=== PATIENT | female | born 1960 | race Caucasian/White ===

== ENCOUNTER 2020-12-08 20:22 | Emergency (ER) | payer SELFPAY ==
[~2020-12-08] VITALS: Ht 160 cm; Wt 73.0 kg
[2020-12-08] MEDS ORDERED: KETOROLAC 30MG/ML VIAL IV ONE (21:15)
[2020-12-08] MEDS ORDERED: CLONIDINE 0.2MG TABLET PO ONE (23:45)
[2020-12-09 02:14] VITALS: BP 155/62
== END 2020-12-09 02:15 | disposition home or self-care (01) ==
LOC: ER 20:22
DX: I16.0 Hypertensive urgency (principal); R07.89 Other chest pain; E78.00 Pure hypercholesterolemia, unspecified; Z86.73 Personal history of transient ischemic attack (TIA), and cerebral infarction without residual deficits
CPT/HCPCS: 36415; 84484; 96374; 99283; J1885

== ENCOUNTER 2021-01-15 18:58 | Emergency (ER) | payer MEDICAID ==
[~2021-01-15] VITALS: Ht 162.6 cm; Wt 68.0 kg
[2021-01-15] MEDS ORDERED: ACETAMINOPHEN 325MG TABLET PO STA (19:42)
[2021-01-15 20:22] LABS: BASOPHILS % 1.1 % (0.0-2.0); CHLORIDE 109 mEq/L (98-107); HEMATOCRIT. 40.2 % (36.0-48.0); HEMOGLOBIN. 13.5 g/dL (12.0-16.0); LYMPHOCYTES % 37.9 % (20.0-50.0); MEAN CORPUSCULAR HEMOGLOBIN 29.4 pg (28.0-32.0); MEAN CORPUSCULAR VOLUME 87.3 fL (81.0-99.0); MEAN PLATELET VOLUME 9.1 fl (7.4-10.4); MONOCYTES % 6.6 % (2.0-8.0); NEUTROPHILS % 52.4 % (40.0-76.0); PLATELET 257 x1000/uL (130-400); RED BLOOD CELL COUNT 4.61 mill/uL (4.2-5.4); RED CELL DISTRIBUTION WIDTH 12.8 % (11.6-14.6)
[2021-01-15 21:44] VITALS: BP 160/78
== END 2021-01-15 21:59 | disposition home or self-care (01) ==
LOC: ER 18:58
DX: I10 Essential (primary) hypertension (principal); E78.00 Pure hypercholesterolemia, unspecified; Z86.73 Personal history of transient ischemic attack (TIA), and cerebral infarction without residual deficits
CPT/HCPCS: 36415; 71045; 80053; 83880; 84484; 85025; 93005; 99285

== ENCOUNTER 2021-05-18 21:53 | Emergency (ER) | payer SELFPAY ==
[~2021-05-18] VITALS: Ht 154.9 cm; Wt 64.0 kg
[2021-05-18 21:57] VITALS: BP 139/58
== END 2021-05-19 01:09 | disposition left against medical advice (07) ==
LOC: ER 21:53
DX: R51.9 Headache, unspecified (principal); I10 Essential (primary) hypertension; E78.00 Pure hypercholesterolemia, unspecified; Z86.73 Personal history of transient ischemic attack (TIA), and cerebral infarction without residual deficits
CPT/HCPCS: 99283

== ENCOUNTER 2023-06-07 18:16 | Inpatient (IN) | payer SELFPAY ==
[~2023-06-07] VITALS: Ht 162.6 cm; Wt 70.8 kg
[2023-06-07] MEDS: MORPHINE SULFATE 4 MG/ML INJ (FOR IV/IM USE) IV STA (19:05)
[2023-06-07] MEDS: ONDANSETRON HCL 4MG/2ML INJ IV STA (19:06)
[2023-06-07] MEDS: SODIUM CHLORIDE 0.9% 1,000 ML IV ONE (19:06)
[2023-06-07] MEDS: FAMOTIDINE 20MG/2ML VIAL IV STA (19:07)
[2023-06-07 19:30] LABS: BASOPHILS % 0.9 % (0.0-2.0); EOSINOPHILS % 1.7 % (0.0-5.0); HEMATOCRIT. 42.1 % (36.0-48.0); HEMOGLOBIN. 14.7 g/dL (12.0-16.0); LYMPHOCYTES % 32.6 % (20.0-50.0); MEAN CORPUSCULAR HEMOGLOBIN 30.5 pg (28.0-32.0); MEAN CORPUSCULAR HGB CONC 34.9 g/dL (31.0-37.0); MEAN CORPUSCULAR VOLUME 87.4 fL (81.0-99.0); MEAN PLATELET VOLUME 8.5 fl (7.4-10.4); MONOCYTES % 6.1 % (2.0-8.0); NEUTROPHILS % 58.7 % (40.0-76.0); PLATELET 308 x1000/uL (130-400); RED BLOOD CELL COUNT 4.82 mill/uL (4.2-5.4); RED CELL DISTRIBUTION WIDTH 12.7 % (11.6-14.6); WHITE BLOOD COUNT 7.7 x1000/uL (4.5-11.0)
[2023-06-07 19:46] LABS: ALANINE AMINOTRANSFERASE 49 IU/L (10-49); ALBUMIN 4.9 g/dL (3.2-4.8); ASPARTATE AMINOTRANSFERASE 41 IU/L (<34); BILIRUBIN TOTAL 0.5 mg/dL (0.1-1.0); CALCIUM 9.6 mg/dL (8.7-10.4); CARBON DIOXIDE 24 mEq/L (21-32); CHLORIDE 107 mEq/L (98-107); CREATININE 0.7 mg/dL (0.6-1.0); GLUCOSE 109 mg/dL (70-105); POTASSIUM 3.2 mEq/L (3.5-5.1); PROTEIN TOTAL 8.4 g/dL (6.0-8.3); SODIUM 141 mEq/L (136-145); TROPONIN I HIGH SENSITIVITY 19 ng/L (3.0-34); UREA NITROGEN BLOOD 11 mg/dL (9-23)
[2023-06-07] MEDS ORDERED: ONDANSETRON HCL 4MG/2ML INJ IV PRN (20:15)
[2023-06-07] MEDS: KCL 10MEQ/50ML PREMIX 50 ML IV ONE (21:27)
[2023-06-07] MEDS ORDERED: HYDROCODONE/ACETAMINOPHEN 5/325MG TABLET PO PRN (21:31)
[2023-06-07] MEDS: ENOXAPARIN 40MG/0.4ML SYR SUBCUT SCH (21:45)
[2023-06-07] MEDS: ASPIRIN 81MG TABLET PO ONE (21:46)
[2023-06-08 06:42] LABS: BASOPHILS % 1.1 % (0.0-2.0); EOSINOPHILS % 3.6 % (0.0-5.0); HEMATOCRIT. 37.3 % (36.0-48.0); HEMOGLOBIN. 12.9 g/dL (12.0-16.0); LYMPHOCYTES % 39.4 % (20.0-50.0); MEAN CORPUSCULAR HEMOGLOBIN 30.8 pg (28.0-32.0); MEAN CORPUSCULAR HGB CONC 34.6 g/dL (31.0-37.0); MEAN CORPUSCULAR VOLUME 88.9 fL (81.0-99.0); MEAN PLATELET VOLUME 8.1 fl (7.4-10.4); MONOCYTES % 6.4 % (2.0-8.0); NEUTROPHILS % 49.5 % (40.0-76.0); PLATELET 260 x1000/uL (130-400); RED BLOOD CELL COUNT 4.19 mill/uL (4.2-5.4); RED CELL DISTRIBUTION WIDTH 12.8 % (11.6-14.6); WHITE BLOOD COUNT 5.7 x1000/uL (4.5-11.0)
[2023-06-08 07:24] LABS: ALANINE AMINOTRANSFERASE 37 IU/L (10-49); ALBUMIN 4.1 g/dL (3.2-4.8); ASPARTATE AMINOTRANSFERASE 26 IU/L (<34); BILIRUBIN DIRECT 0.2 mg/dL (<=3.0); BILIRUBIN TOTAL 0.6 mg/dL (0.1-1.0); CALCIUM 8.6 mg/dL (8.7-10.4); CARBON DIOXIDE 25 mEq/L (21-32); CHLORIDE 109 mEq/L (98-107); CREATININE 0.6 mg/dL (0.6-1.0); GLUCOSE 89 mg/dL (70-105); PHOSPHORUS 2.8 mg/dL (2.5-4.9); POTASSIUM 3.4 mEq/L (3.5-5.1); PROTEIN TOTAL 6.9 g/dL (6.0-8.3); SODIUM 142 mEq/L (136-145); UREA NITROGEN BLOOD 10 mg/dL (9-23)
[2023-06-08] MEDS: POTASSIUM CHLORIDE 20MEQ TABLET SR PO NR (10:52)
[2023-06-08] MEDS: ASPIRIN 81MG EC TABLET PO SCH (10:52)
[2023-06-08 12:00] VITALS: BP 110/55; PULSE 58; RESP 20; TEMP 97.8
[2023-06-08] MEDS ORDERED: LEVO88CA4 (12:07)
[2023-06-08] MEDS ORDERED: LISI40TA13 MT (12:08)
[2023-06-08] MEDS ORDERED: METO-539 MT (12:09)
[2023-06-08] MEDS ORDERED: LIP40 MT (12:10)
[2023-06-08] MEDS ORDERED: NIFE-33 MT (12:11)
[2023-06-08] MEDS ORDERED: TRAZ-251 MT (12:12)
[2023-06-08] MEDS ORDERED: CLON0.1T PO (12:13)
[2023-06-08] MEDS ORDERED: ASPI-1079 PO (12:15)
[2023-06-08 12:16] VITALS: BP 110/55; PULSE 58; RESP 20; TEMP 97.8
[2023-06-08 14:22] LABS: CLARITY URINE CLEAR (CLEAR); COLOR URINE YELLOW (YELLOW); GLUCOSE URINE NEGATIVE (NEGATIVE); KETONES URINE NEGATIVE (NEGATIVE); LEUKOCYTE ESTERASE URINE 2+ (NEGATIVE); NITRITE URINE NEGATIVE (NEGATIVE); OCCULT BLOOD URINE NEGATIVE (NEGATIVE); PROTEIN URINE NEGATIVE (NEGATIVE); SPECIFIC GRAVITY URINE 1.005 (1.005-1.030)
[2023-06-08 14:32] LABS: *AMPHETAMINES SCREEN URINE NEGATIVE (NEGATIVE); *BARBITURATES SCREEN URINE NEGATIVE (NEGATIVE); *BENZODIAZEPINES SCREEN URINE NEGATIVE (NEGATIVE); *COCAINE SCREEN URINE NEGATIVE (NEGATIVE); CANNABINOID URINE SCREEN NEGATIVE (NEGATIVE); ECSTASY MDMA SCREEN URINE NEGATIVE (NEGATIVE); METHADONE URINE SCREEN Neg (NEGATIVE); OPIATES URINE SCREEN NEGATIVE (NEGATIVE); PHENCYCLIDINE URINE SCREEN NEGATIVE (NEGATIVE)
[2023-06-08 14:43] LABS: SQUAMOUS EPITHELIAL CELL URINE FEW /lpf (RARE/1+)
[2023-06-08 14:45] LABS: BACTERIA URINE TRACE; RBC URINE 0-2 /hpf (0-2)
[2023-06-08 16:00] VITALS: BP 155/54; PULSE 60; RESP 18; TEMP 98.2
[2023-06-08 20:00] VITALS: BP 142/59; PULSE 62; RESP 16; TEMP 97.5
[2023-06-08] MEDS: ACETAMINOPHEN 325MG TABLET PO PRN (20:04)
[2023-06-08 21:35] VITALS: BP 147/60; PULSE 60; RESP 18; TEMP 98.1
[2023-06-08] MEDS: ATORVASTATIN CALCIUM 40MG TABLET PO SCH (21:44)
[2023-06-09 00:21] VITALS: BP 156/72; PULSE 90; RESP 18; TEMP 98
[2023-06-09 04:00] VITALS: BP 125/59; PULSE 60; RESP 17; TEMP 96.9
[2023-06-09 07:01] LABS: BASOPHILS % 1.2 % (0.0-2.0); EOSINOPHILS % 4.6 % (0.0-5.0); HEMATOCRIT. 38.7 % (36.0-48.0); HEMOGLOBIN. 13.4 g/dL (12.0-16.0); LYMPHOCYTES % 43.9 % (20.0-50.0); MEAN CORPUSCULAR HEMOGLOBIN 30.8 pg (28.0-32.0); MEAN CORPUSCULAR HGB CONC 34.6 g/dL (31.0-37.0); MEAN CORPUSCULAR VOLUME 88.9 fL (81.0-99.0); MEAN PLATELET VOLUME 8.7 fl (7.4-10.4); MONOCYTES % 5.7 % (2.0-8.0); NEUTROPHILS % 44.6 % (40.0-76.0); PLATELET 269 x1000/uL (130-400); RED BLOOD CELL COUNT 4.35 mill/uL (4.2-5.4); WHITE BLOOD COUNT 5.7 x1000/uL (4.5-11.0)
[2023-06-09 07:14] LABS: CARBON DIOXIDE 25 mEq/L (21-32); CHLORIDE 110 mEq/L (98-107); CREATININE 0.7 mg/dL (0.6-1.0); GLUCOSE 88 mg/dL (70-105); POTASSIUM 3.9 mEq/L (3.5-5.1); SODIUM 142 mEq/L (136-145); THYROID STIMULATING HORMONE 2.03 uIU/mL (0.55-4.78); TROPONIN I HIGH SENSITIVITY 11 ng/L (3.0-34); UREA NITROGEN BLOOD 10 mg/dL (9-23)
[2023-06-09 08:00] VITALS: BP 127/63; PULSE 65; RESP 16; TEMP 97.8
[2023-06-09] MEDS ORDERED: LOSARTAN 25 MG TABLET PO SCH (10:45)
[2023-06-09] MEDS ORDERED: LOSA25TA26 PO (10:55)
[2023-06-09 11:22] VITALS: BP 127/63; PULSE 65; TEMP 97.8; O2SAT 98
== END 2023-06-09 12:30 | disposition home or self-care (01) | DRG 203 ==
LOC: ER 18:16 → 8WST 20:00
PROVIDERS: ADMIT Family Medicine Adult Medicine; ATTEND Family Medicine Adult Medicine
DX: R07.89 Other chest pain (principal); E03.9 Hypothyroidism, unspecified; E78.00 Pure hypercholesterolemia, unspecified; I10 Essential (primary) hypertension; R11.2 Nausea with vomiting, unspecified; K57.30 Diverticulosis of large intestine without perforation or abscess without bleeding; E87.6 Hypokalemia; R82.71 Bacteriuria; Z86.73 Personal history of transient ischemic attack (TIA), and cerebral infarction without residual deficits; Z82.49 Family history of ischemic heart disease and other diseases of the circulatory system
CPT/HCPCS: 36415; 71045; 74176; 76705; 80048; 80053; 80076; 80305; 81003; 83735; 83880; 84100; 84443; 84484; 85025; 93005; 93306; 99285; C1893; J1650; J2270; J2405; J3480; J3490; J7030

== ENCOUNTER 2023-06-10 18:49 | Inpatient (IN) | payer SELFPAY ==
[~2023-06-10] VITALS: Ht 157.5 cm; Wt 77.3 kg
[~2023-06-10 18:49] MED LIST: ASPI-1079 PO; LEVO88CA4; LIP40 MT; LOSA25TA26 PO; TRAZ-251 MT
[2023-06-10 20:13] LABS: BASOPHILS % 1.4 % (0.0-2.0); EOSINOPHILS % 2.5 % (0.0-5.0); HEMATOCRIT. 40.4 % (36.0-48.0); HEMOGLOBIN. 14.1 g/dL (12.0-16.0); LYMPHOCYTES % 36.5 % (20.0-50.0); MEAN CORPUSCULAR HGB CONC 34.9 g/dL (31.0-37.0); MEAN CORPUSCULAR VOLUME 88.8 fL (81.0-99.0); MEAN PLATELET VOLUME 8.4 fl (7.4-10.4); MONOCYTES % 6.2 % (2.0-8.0); NEUTROPHILS % 53.4 % (40.0-76.0); PLATELET 284 x1000/uL (130-400); RED BLOOD CELL COUNT 4.55 mill/uL (4.2-5.4); RED CELL DISTRIBUTION WIDTH 12.7 % (11.6-14.6); WHITE BLOOD COUNT 6.1 x1000/uL (4.5-11.0)
[2023-06-10 20:23] LABS: PROTHROMBIN TIME 10.8 sec (9.6-11.0)
[2023-06-10 20:34] LABS: ALANINE AMINOTRANSFERASE 52 IU/L (10-49); ALBUMIN 4.5 g/dL (3.2-4.8); ASPARTATE AMINOTRANSFERASE 42 IU/L (<34); BILIRUBIN TOTAL 0.4 mg/dL (0.1-1.0); CALCIUM 9.1 mg/dL (8.7-10.4); CARBON DIOXIDE 24 mEq/L (21-32); CHLORIDE 109 mEq/L (98-107); CREATININE 0.7 mg/dL (0.6-1.0); GLUCOSE 104 mg/dL (70-105); POTASSIUM 3.6 mEq/L (3.5-5.1); PROTEIN TOTAL 7.4 g/dL (6.0-8.3); SODIUM 141 mEq/L (136-145); TROPONIN I HIGH SENSITIVITY 9 ng/L (3.0-34); UREA NITROGEN BLOOD 9 mg/dL (9-23)
[2023-06-10 22:27] LABS: TROPONIN I HIGH SENSITIVITY 10 ng/L (3.0-34)
[2023-06-10 23:00] VITALS: BP 157/71; PULSE 62; RESP 17; TEMP 97.9
[2023-06-10] MEDS ORDERED: KETOROLAC 15MG/ML VIAL IV PRN (23:15)
[2023-06-10] MEDS ORDERED: IPRATROPIUM/ALBUTEROL 0.5-3(2.5)MG/3ML NEB HHN PRN (23:15)
[2023-06-10] MEDS ORDERED: DOCUSATE SODIUM 100MG CAPSULE PO PRN (23:15)
[2023-06-10] MEDS ORDERED: ACETAMINOPHEN 325MG TABLET PO PRN ×2 (23:15)
[2023-06-10] MEDS ORDERED: ONDANSETRON HCL 4MG/2ML INJ IV PRN (23:15)
[2023-06-10] MEDS: FAMOTIDINE 20MG TABLET PO SCH (23:54)
[2023-06-11] VITALS (7 sets, daily range): BP systolic 128–157; BP diastolic 58–67; PULSE 61–65; RESP 18–20; TEMP 97.9–98.2; O2SAT 97
[2023-06-11] MEDS: LEVOTHYROXINE SODIUM 88MCG TABLET PO SCH (06:56)
[2023-06-11 07:00] LABS: BASOPHILS % 1.7 % (0.0-2.0); HEMATOCRIT. 40.4 % (36.0-48.0); HEMOGLOBIN. 13.8 g/dL (12.0-16.0); LYMPHOCYTES % 40.6 % (20.0-50.0); MEAN CORPUSCULAR HEMOGLOBIN 30.1 pg (28.0-32.0); MEAN CORPUSCULAR HGB CONC 34.2 g/dL (31.0-37.0); MEAN CORPUSCULAR VOLUME 88.2 fL (81.0-99.0); MEAN PLATELET VOLUME 8.7 fl (7.4-10.4); MONOCYTES % 6.8 % (2.0-8.0); NEUTROPHILS % 46.9 % (40.0-76.0); PLATELET 251 x1000/uL (130-400); RED BLOOD CELL COUNT 4.58 mill/uL (4.2-5.4); RED CELL DISTRIBUTION WIDTH 12.9 % (11.6-14.6); WHITE BLOOD COUNT 5.3 x1000/uL (4.5-11.0)
[2023-06-11 07:32] LABS: ALANINE AMINOTRANSFERASE 52 IU/L (10-49); ALBUMIN 4.3 g/dL (3.2-4.8); ASPARTATE AMINOTRANSFERASE 38 IU/L (<34); BILIRUBIN TOTAL 0.5 mg/dL (0.1-1.0); CALCIUM 9.1 mg/dL (8.7-10.4); CARBON DIOXIDE 28 mEq/L (21-32); CHLORIDE 108 mEq/L (98-107); CHOLESTEROL 115 mg/dL (<200); CREATININE 0.7 mg/dL (0.6-1.0); GLUCOSE 91 mg/dL (70-105); HDL CHOLESTEROL 51 mg/dL (>65); LDL CHOLESTEROL 54 mg/dL (5-100); POTASSIUM 4.2 mEq/L (3.5-5.1); PROTEIN TOTAL 7.2 g/dL (6.0-8.3); SODIUM 143 mEq/L (136-145); T4 FREE 1.09 ng/dL (0.89-1.76); TRIGLYCERIDE 67 mg/dL (0-150); UREA NITROGEN BLOOD 10 mg/dL (9-23)
[2023-06-11 08:03] LABS: HEPATITIS B SURFACE ANTIGEN NEGATIVE (Negative); HEPATITIS C AB NON REACTIVE (Neg) (Negative)
[2023-06-11] MEDS: MULTIVITAMINS,THER W-MINERALS TABLET PO SCH (09:17)
[2023-06-11] MEDS: ASPIRIN 81MG TABLET PO SCH (09:17)
[2023-06-11] MEDS: DOCUSATE SODIUM 100MG CAPSULE PO SCH (09:17)
[2023-06-11] MEDS: LOSARTAN 25 MG TABLET PO SCH (09:17)
[2023-06-11] MEDS: ENOXAPARIN 40MG/0.4ML SYR SUBCUT SCH (09:18)
[2023-06-11] MEDS: CLONIDINE 0.1MG TABLET PO PRN (12:00)
[2023-06-11] MEDS: GUAIFENESIN 200MG/10ML SUGAR FREE UDC PO PRN (12:06)
[2023-06-11] MEDS: MAGNESIUM/ALUMINUM HYDROXIDE/SIMETHICONE 30ML UDC PO PRN (12:07)
[2023-06-11] MEDS ORDERED: OMEP20CA14 PO (14:51)
[2023-06-11] MEDS ORDERED: ATORVASTATIN CALCIUM 40MG TABLET PO SCH (21:00)
[2023-06-11] MEDS ORDERED: TRAZODONE HCL 50MG TABLET PO SCH (21:00)
== END 2023-06-11 17:05 | disposition home or self-care (01) | DRG 243 ==
LOC: ER 18:49 → 7WST 21:25 → EDBEDREQTM 21:29 → EDBEDREQ 21:29
PROVIDERS: ADMIT Hospitalist; ATTEND Hospitalist
DX: K21.9 Gastro-esophageal reflux disease without esophagitis (principal); E03.9 Hypothyroidism, unspecified; E78.00 Pure hypercholesterolemia, unspecified; I10 Essential (primary) hypertension; R07.89 Other chest pain; Z79.82 Long term (current) use of aspirin; Z79.899 Other long term (current) drug therapy; Z86.73 Personal history of transient ischemic attack (TIA), and cerebral infarction without residual deficits; Z82.49 Family history of ischemic heart disease and other diseases of the circulatory system
CPT/HCPCS: 36415; 71045; 80053; 80061; 84439; 84481; 84484; 85025; 86705; 87340; 93005; 99285; J1650

== ENCOUNTER 2023-06-13 21:28 | Emergency (ER) | payer SELFPAY ==
[~2023-06-13] VITALS: Ht 167.6 cm; Wt 71.0 kg
[~2023-06-13 21:28] MED LIST changes: +OMEP20CA14 PO
[2023-06-13 21:34] VITALS: BP 142/75; PULSE 66; RESP 20; TEMP 98.7; O2SAT 98
[2023-06-13] MEDS ORDERED: MORPHINE SULFATE 4 MG/ML INJ (FOR IV/IM USE) IV STA (21:45)
== END 2023-06-14 00:44 | disposition left against medical advice (07) ==
LOC: ER 21:28
DX: R07.9 Chest pain, unspecified (principal); Z53.21 Procedure and treatment not carried out due to patient leaving prior to being seen by health care provider
CPT/HCPCS: 93005; 99281

== ENCOUNTER 2023-06-17 18:32 | Emergency (ER) | payer SELFPAY ==
[~2023-06-17] VITALS: Ht 162.6 cm; Wt 69.0 kg
[2023-06-17 18:36] VITALS: TEMP 98.4; O2SAT 98
[2023-06-17 19:52] LABS: BASOPHILS % 1.4 % (0.0-2.0); EOSINOPHILS % 2.3 % (0.0-5.0); HEMATOCRIT. 42.7 % (36.0-48.0); HEMOGLOBIN. 14.6 g/dL (12.0-16.0); LYMPHOCYTES % 31.2 % (20.0-50.0); MEAN CORPUSCULAR HEMOGLOBIN 30.3 pg (28.0-32.0); MEAN CORPUSCULAR HGB CONC 34.2 g/dL (31.0-37.0); MEAN CORPUSCULAR VOLUME 88.6 fL (81.0-99.0); MEAN PLATELET VOLUME 8.6 fl (7.4-10.4); MONOCYTES % 5.9 % (2.0-8.0); NEUTROPHILS % 59.2 % (40.0-76.0); PLATELET 294 x1000/uL (130-400); RED BLOOD CELL COUNT 4.82 mill/uL (4.2-5.4); WHITE BLOOD COUNT 6.5 x1000/uL (4.5-11.0)
[2023-06-17 20:12] LABS: ALANINE AMINOTRANSFERASE 49 IU/L (10-49); ALBUMIN 4.6 g/dL (3.2-4.8); ASPARTATE AMINOTRANSFERASE 31 IU/L (<34); BILIRUBIN TOTAL 0.5 mg/dL (0.1-1.0); CALCIUM 8.9 mg/dL (8.7-10.4); CARBON DIOXIDE 29 mEq/L (21-32); CHLORIDE 105 mEq/L (98-107); CREATININE 0.7 mg/dL (0.6-1.0); GLUCOSE 116 mg/dL (70-105); POTASSIUM 3.7 mEq/L (3.5-5.1); PROTEIN TOTAL 7.4 g/dL (6.0-8.3); SODIUM 140 mEq/L (136-145); TROPONIN I HIGH SENSITIVITY 9 ng/L (3.0-34); UREA NITROGEN BLOOD 9 mg/dL (9-23)
[2023-06-17 21:14] VITALS: BP 155/60; PULSE 66; RESP 18
== END 2023-06-17 21:25 | disposition home or self-care (01) ==
LOC: ER 18:32
DX: R07.9 Chest pain, unspecified (principal); E78.00 Pure hypercholesterolemia, unspecified; I10 Essential (primary) hypertension; K80.20 Calculus of gallbladder without cholecystitis without obstruction; E03.9 Hypothyroidism, unspecified
CPT/HCPCS: 36415; 76705; 80053; 83880; 84484; 85025; 99284

== ENCOUNTER 2023-06-20 20:29 | Emergency (ER) | payer SELFPAY ==
[~2023-06-20] VITALS: Ht 165.1 cm; Wt 60.0 kg
[2023-06-20 20:53] VITALS: BP 182/84; PULSE 77; RESP 18; TEMP 98.1; O2SAT 97
== END 2023-06-20 23:50 | disposition left against medical advice (07) ==
LOC: ER 20:29
DX: I10 Essential (primary) hypertension (principal); Z53.21 Procedure and treatment not carried out due to patient leaving prior to being seen by health care provider
CPT/HCPCS: 99281